=== PATIENT | female | born 1985 | race Caucasian/White ===

== ENCOUNTER 2024-06-21 09:14 | Emergency (ER) | payer SELFPAY ==
[2024-06-21] MEDS: diphenhydrAMINE 50 MG/ML SDV IVPUSH ONE (10:24)
[2024-06-21] MEDS: Ketorolac 30 MG/ML SDV IVPUSH ONE (10:25)
[2024-06-21] MEDS: Sodium Chloride 0.9% 10 ML Syringe FLUSH PRN (10:26)
[2024-06-21] MEDS: Sodium Chloride 0.9% 1,000 ML IV SCH (10:26)
[2024-06-21] MEDS: Metoclopramide 10 MG/2 ML SDV IVPUSH ONE (10:26)
[2024-06-21 10:59] LABS: BASOPHILS PERCENT AUTO 0.4 % (0.0-1.0); EOSINOPHILS ABSOLUTE AUTO 0.2 K/mm3 (0.0-0.4); EOSINOPHILS PERCENT AUTO 2.8 % (0.0-6.0); HEMATOCRIT 44.6 % (37.0-47.0); HEMOGLOBIN 14.4 gm/dl (12.0-16.0); IMMATURE GRAN ABSOLUTE AUTO 0.02 K/mm3 (0.00-0.05); IMMATURE GRAN PERCENT AUTO 0.3 % (0.0-0.4); LYMPHOCYTES ABSOLUTE AUTO 1.3 K/mm3 (1.0-4.8); LYMPHOCYTES PERCENT AUTO 19.1 % (24.0-44.0); MEAN CORPUSCULAR HEMOGLOBIN 26.4 pg (28.0-32.0); MEAN CORPUSCULAR HGB CONC 32.3 g/dl (32.0-36.0); MEAN CORPUSCULAR VOLUME 81.8 fl (83.0-99.0); MEAN PLATELET VOLUME 10.4 fl (9.4-12.3); MONOCYTES ABSOLUTE AUTO 0.5 K/mm3 (0.0-0.8); MONOCYTES PERCENT AUTO 6.6 % (0.0-8.0); NEUTROPHILS ABSOLUTE AUTO 4.8 K/mm3 (1.8-7.7); NEUTROPHILS PERCENT AUTO 70.8 % (41.0-71.0); PLATELET COUNT,PLT 184 K/mm3 (150-400); RED BLOOD CELL COUNT 5.45 M/mm3 (4.10-5.30); WHITE BLOOD CELL COUNT,WBC 6.77 K/mm3 (3.9-11.3)
[2024-06-21 11:25] LABS: SLIDE REVIEW ABNORMAL SMEAR
[2024-06-21 11:30] LABS: A/G RATIO 0.9 (1-2); ALANINE AMINOTRANSFERASE,ALT 23 U/L (14-59); ALBUMIN 3.5 g/dl (3.4-5.0); ALKALINE PHOSPHATASE 70 U/L (46-116); ANION GAP 11.7 (5-15); ASPARTATE AMNIOTRANSFERASE,AST 10 U/L (15-37); BILIRUBIN TOTAL 0.3 mg/dL (0.2-1.0); BLOOD UREA NITROGEN,BUN 11 mg/dL (7-18); CALCIUM 9.4 mg/dL (8.5-10.1); CARBON DIOXIDE,CO2 29 mEq/L (21-32); CHLORIDE,CL 105 mEq/L (98-107); EST CRCL DRUG DOSING (CG) 82.48 mL/min; ESTIMATED GFR 74 mL/min (>60); GLUCOSE RANDOM 130 mg/dL (70-99); MAGNESIUM 1.8 mg/dL (1.8-2.4); POTASSIUM,K 3.7 mEq/L (3.5-5.1); PROTEIN TOTAL,TP 7.5 g/dl (6.4-8.2); SODIUM,NA 142 mEq/L (136-145)
[2024-06-21 11:31] LABS: TROPONIN I HIGH SENSITIVITY < 4 pg/mL (<=51)
== END 2024-06-21 12:18 | disposition home or self-care (01) ==
LOC: JD.ED 09:14
DX: J01.90 Acute sinusitis, unspecified (principal); M46.92 Unspecified inflammatory spondylopathy, cervical region; Z88.0 Allergy status to penicillin
CPT/HCPCS: 36415; 70450; 72125; 80053; 83735; 84484; 85025; 93005; 96361; 96374; 96375; 99284; J1200; J1885; J2765; J3490; J7030